=== PATIENT | female | born 1970 | race Caucasian/White ===

== ENCOUNTER 2023-12-01 09:25 | Day surgery (SDC) | payer OTHER ==
[2023-12-01] MEDS ORDERED: Xylocaine-Mpf 2% 5 Ml Vial IJ ONE (09:26)
[2023-12-01 10:08] LABS: HCG URINE TEST NEGATIVE (NEGATIVE)
[2023-12-01] MEDS ORDERED: DIPRIVAN 200 MG/20 ML IV ONE (11:18)
[2023-12-01] MEDS ORDERED: Lactated Ringers 1,000 ML IV ONE (11:38)
--- NOTE | 2023-12-01 12:11 | XRAY ---
Indication: Bilateral L4-S1 MBB. Intraoperative fluoroscopy provided for 6 seconds. Single digital spot image submitted for interpretation demonstrates posterior needle tips projecting over the expected left and right L4-S1 nerve roots. Correlate with intraoperative findings/report.
--- NOTE | 2023-12-01 12:59 | XRAY ---
6 seconds of fluoroscopy was used in surgery for a bilateral L4-S1 MBB.
== END 2023-12-01 11:45 | disposition home or self-care (01) ==
LOC: SDC-PAIN 09:25
PROVIDERS: ATTEND Psychiatry & Neurology Pain Medicine
DX: M47.816 Spondylosis without myelopathy or radiculopathy, lumbar region (principal); R73.03 Prediabetes
CPT/HCPCS: 64493; 64494; 72020; 77002; 81025; 82947; J2704

== ENCOUNTER 2024-01-04 11:25 | Day surgery (SDC) | payer OTHER ==
[2024-01-04] MEDS ORDERED: Depo-Medrol 40 MG/ML IM ONE (11:26)
[2024-01-04] MEDS ORDERED: BUPIVACAINE 0.5% VIAL IJ ONE (11:26)
[2024-01-04 12:14] LABS: HCG URINE TEST NEGATIVE (NEGATIVE)
[2024-01-04] MEDS ORDERED: DIPRIVAN 200 MG/20 ML IV ONE (12:59)
[2024-01-04] MEDS ORDERED: Lactated Ringers 1,000 ML IV ONE (14:20)
--- NOTE | 2024-01-04 14:32 | XRAY ---
Indication: Bilateral L4-S1 MBB. Intraoperative fluoroscopy provided for 8 seconds. Single digital spot image submitted for interpretation demonstrates posterior needle tips projecting over the expected left and right L4-S1 nerve roots. Correlate with intraoperative findings/report.
--- NOTE | 2024-01-04 14:38 | XRAY ---
8 seconds of fluoroscopy was used in surgery for a bilateral L4-S1 MBB.
== END 2024-01-04 13:22 ==
LOC: SDC-PAIN 11:25
PROVIDERS: ATTEND Psychiatry & Neurology Pain Medicine
DX: M47.816 Spondylosis without myelopathy or radiculopathy, lumbar region (principal); M47.817 Spondylosis without myelopathy or radiculopathy, lumbosacral region
CPT/HCPCS: 64493; 64494; 72020; 77002; 81025; J2704

== ENCOUNTER 2024-02-01 11:34 | Day surgery (SDC) | payer OTHER ==
[2024-02-01] MEDS ORDERED: LIDOCAINE HCL 1% AMPUL 5 ML IJ ONE (11:35)
[2024-02-01] MEDS ORDERED: BUPIVACAINE 0.5% VIAL IJ ONE (11:35)
[2024-02-01] MEDS ORDERED: Depo-Medrol 40 MG/ML IM ONE (11:35)
[2024-02-01 11:51] LABS: HCG URINE TEST NEGATIVE (NEGATIVE)
[2024-02-01] MEDS ORDERED: DIPRIVAN 200 MG/20 ML IV ONE (12:45)
[2024-02-01] MEDS ORDERED: Lactated Ringers 1,000 ML IV ONE (12:50)
--- NOTE | 2024-02-01 15:02 | XRAY ---
Indication: Right L4-S1 RFA. Intraoperative fluoroscopy provided for 11 seconds. 5 digital spot image submitted for interpretation demonstrates posterior needle tips projecting over the expected right L4-S1 nerve roots. Correlate with intraoperative findings/report.
--- NOTE | 2024-02-01 16:56 | XRAY ---
11 seconds of fluoroscopy was used in surgery for a right L4-S1 RFA.
== END 2024-02-01 13:16 | disposition home or self-care (01) ==
LOC: SDC-PAIN 11:34
PROVIDERS: ATTEND Psychiatry & Neurology Pain Medicine
DX: M47.816 Spondylosis without myelopathy or radiculopathy, lumbar region (principal)
CPT/HCPCS: 64635; 64636; 72100; 77002; 81025; J2704

== ENCOUNTER 2024-02-22 12:01 | Day surgery (SDC) | payer OTHER ==
[2024-02-22] MEDS ORDERED: LIDOCAINE HCL 1% AMPUL 5 ML IJ ONE (12:02)
[2024-02-22] MEDS ORDERED: Depo-Medrol 40 MG/ML IM ONE (12:02)
[2024-02-22] MEDS ORDERED: BUPIVACAINE 0.5% VIAL IJ ONE (12:02)
[2024-02-22 12:43] LABS: HCG URINE TEST NEGATIVE (NEGATIVE)
[2024-02-22] MEDS ORDERED: DIPRIVAN 200 MG/20 ML IV ONE (14:09)
--- NOTE | 2024-02-22 16:22 | XRAY ---
Indication: Left L4-S1 RFA. Intraoperative fluoroscopy provided for 17 seconds. 4 digital spot image submitted for interpretation demonstrates posterior needle tips projecting over the expected left L4-S1 nerve roots. Correlate with intraoperative findings/report.
--- NOTE | 2024-02-22 16:30 | XRAY ---
17 seconds of fluoroscopy was used in surgery for a left L4-S1 RFA.
== END 2024-02-22 14:40 | disposition home or self-care (01) ==
LOC: SDC-PAIN 12:01
PROVIDERS: ATTEND Psychiatry & Neurology Pain Medicine
DX: M47.817 Spondylosis without myelopathy or radiculopathy, lumbosacral region (principal)
CPT/HCPCS: 64635; 64636; 72100; 77002; 81025; J2704